=== PATIENT | male | born 1955 | race Caucasian/White ===

== ENCOUNTER → 2016-07-25 | Day surgery (SDC) | payer OTHER ==
[~2016-07-25] VITALS: Ht 167.6 cm; Wt 70.3 kg
[~2016-07-25] MED LIST: ASPIRIN81 MG PO; CLINDAMYCIN HC300 MG PO; COLACE100 MG PO; COUMADIN3 M1 PO; COUMADIN7.5 M1 PO; FERROUS SULFAT325 MG PO; FOLIC ACID0.4 MG PO; FOLIC ACID1 MG PO; K-Dur 20MEQ20 MEQ PO; LASIX40 MG PO; LISINOPRIL5 MG PO; MAG-OX 400400 MG PO; MAGNESIUM OXID400 MG PO; METOPROLOL25 MG PO; MULTIVITAMIN1 TA1 PO; NAPROSYN500 MG PO; PENICILLIN-VK500 M1 PO; PERCOCET 325 MG1 TA5 PO; POTASSIUM CHLO20 ME4 PO; PRAVASTATIN SOD20 MG PO; PROTONIX40 MG PO; TUMS500 MG PO; VITAMIN B1100 MG PO; VITAMIN B150 MG PO
--- NOTE | ~2016-07-25 | O ---
[place], [place] OPERATIVE NOTE NAME: COREDLL CASILLAS UNIT #: [id number] ROOM: DOCTOR: RAKESH HOPSON DMD BIRTHDATE: [birth year] DOS: PREOPERATIVE DIAGNOSES: Carries and periodontal disease and anxiety. POSTOPERATIVE DIAGNOSES: Carries and periodontal disease and anxiety. ANESTHESIA: General anesthesia with endotracheal intubation. FLUIDS: Minimal. ESTIMATED BLOOD LOSS: Minimal. COMPLICATIONS: None. CONDITION: To PACU, stable. DESCRIPTION OF PROCEDURE: The patient was brought to the OR and placed in supine position. IV and EKG lines were placed. Endotracheal intubation and general anesthesia was administered. The patient was prepped and draped for oral procedures. Risks and benefits were explained to the patient prior to surgery. Clinical exam and x-rays taken determined nonrestorable maxillary and mandibular dentition. PROCEDURES PERFORMED: Complete extraction of teeth #4, 5, 6, 7, 8, 9, 11, 12, 13, 15, 16, 17, 20, 21, 22, 23 26, 27, 28, 29 and 31. Full-thickness flaps in all 4 quadrants with moderate alveoplasty, teeth #5 and 12 fractured with complete retrieval. Sutured with 4-0 Vicryl. Lavaged x 2. Throat pack removed. The patient left the OR in good condition and went to the PACU. RAKESH HOPSON DMD CM:OPRECORD:OPERATIVE NOTE 1300 48 RAKESH HOPSON DMD 07/26/16 174 interface
[2016-07-25 06:45] VITALS: BP 111/58
[2016-07-25 08:50] VITALS: BP 117/58
[2016-07-25 09:05] VITALS: BP 121/61
[2016-07-25 09:19] VITALS: BP 125/66
[2016-07-25 09:30] VITALS: BP 125/70
[2016-07-25 09:50] VITALS: BP 109/66
== END | disposition home or self-care (01) ==
LOC: SDC 07-18 11:30
DX: K02.9 Dental caries, unspecified (principal); K05.6 Periodontal disease, unspecified; F41.9 Anxiety disorder, unspecified; Z87.891 Personal history of nicotine dependence; I10 Essential (primary) hypertension; I25.2 Old myocardial infarction; E78.00 Pure hypercholesterolemia, unspecified; I25.10 Atherosclerotic heart disease of native coronary artery without angina pectoris; I73.9 Peripheral vascular disease, unspecified; Z86.73 Personal history of transient ischemic attack (TIA), and cerebral infarction without residual deficits; Z95.810 Presence of automatic (implantable) cardiac defibrillator; Z98.890 Other specified postprocedural states

== ENCOUNTER 2016-08-14 12:44 | Inpatient (IN) | payer OTHER ==
[~2016-08-14] VITALS: Ht 154.9 cm; Wt 57.7 kg
--- NOTE | ~2016-08-14 | PR ---
[place], [place] PROGRESS NOTE NAME: CORDELL CASILLAS [facility] #: [id number] UNIT #: [id number] ROOM: 507 DOCTOR: ALEIDA ROCHA [facility],KAMLA BIRTHDATE: [birth year] DOS: 08/17/2016 SUBJECTIVE: ____. PHYSICAL EXAMINATION: VITAL SIGNS: Stable. No fever is noted. SKIN: Warm, not diaphoretic. NECK: Supple. LUNGS: No rales heard. HEART: S1, S2, regular. No gallop. ABDOMEN: Soft. Echocardiogram shows ____ normal. No critical illness is noted. IMPRESSION: Cardiovascular status improving. Hemodynamically stable. We will continue the current therapy and monitor cardiovascular status. I will follow the patient as an outpatient in the office. KAMLA SHIN MD CM:PNTRANS [id number] KAMLA SHIN MD [facility] 08/18/16 0002 interface
--- NOTE | ~2016-08-14 | CON ---
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 They have asked him to avoid that. He is not a smoker and no significant alcohol intake. DATA BASIS: A 61-year-old male presented to the emergency room of [facility] with syncopal episode at home and has recurrent dizziness ____ when become orthostatic, and the patient also apparently can be referred as a right side chest pain, jaw pain, and he had teeth pulled out but still is getting it time to time with similar symptoms. History of myocardial infarction, coronary bypass surgery 5 years ago and had a defibrillator internal put in and no consequence from that and denies any chest discomfort or palpitations. No focal neurological symptoms or signs were noted. His vital signs have been stable heart rhythm and blood pressure and afebrile. REVIEW OF SYSTEMS: HEENT: Unremarkable. CARDIOPULMONARY: As described. GASTROINTESTINAL: Unremarkable. GENITOURINARY: Unremarkable. NEUROLOGIC: No asterixis and no stroke except for syncope. FAMILY HISTORY: Noncontributory. ALLERGIES: No known allergies. PHYSICAL EXAMINATION: LUNGS: No rales heard. HEART: S1, S2, regular, no gallops. SKIN: Warm and not diaphoretic. No cyanosis. RECTAL AND GENITALIA: Deferred. NEUROLOGIC: No focal neurological deficits noted. EXTREMITIES: Pulses are good. No edema was noted. DIAGNOSTIC STUDIES: Chest x-ray done on , and cardiac size is normal. No pneumonic infiltration, no pleural effusion noted, no pneumothorax noted. No acute process. CT of the head done with contrast. Apparent old infarct in the left frontal may be considered, no acute process noted. Myoglobins were minimally elevated; and magnesium was 2.2, little bit high. GFR is diminished to an extent, 39, and creatinine is 2.1, chronic kidney disease. Potassium is low and is being corrected, was 2.9, and now it is 3.3; it has continued to improve. Hemoglobin 11.5. The patient on vitamin D supplements, lisinopril 10 mg with combination of hydrochlorothiazide 12.5. We may discontinue the hydrochlorothiazide and cut back on the lisinopril 5 mg, so that may reduce the [place], [place] REPORT OF CONSULTATION NAME: CORDELL CASILLAS UNIT #: [id number] ROOM: 50 DOCTOR: ALEIDA ROCHA [facility] BIRTHDATE: [birth year] orthostatic symptoms, and we will have him take it at bedtime to reduce the orthostatic symptoms. The patient also on baby aspirin daily. Continue the fenofibrate, iron supplements, thiamine, and simvastatin. He is on furosemide twice a day that also we will cut back into once a day and the patient is on potassium supplements, we will continue that. 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 We will continue the current drugs. May avoid the stimulants and may also use the elastic stockings when he is ambulatory. Thank you very much for asking me to see the patient and follow the patient. KAMLA SHIN MD CM:CONSTR:REPORT OF CONSULTATION 0736 08/15/16 2232 interface
[2016-08-14 12:47] VITALS: BP 119/79
[2016-08-14 13:10] LABS: BASO % 0.4 % (0.0-1.0); EOS # 0.1 10*3/uL (0.0-0.4); EOS % 0.7 % (1.0-4.0); HEMATOCRIT 39.1 % (42.0-52.0); HEMOGLOBIN 13.5 g/dl (14.0-18.0); LYMPH # 1.2 10*3/uL (1.3-4.4); MEAN CELL VOLUME 81.3 fl (80.0-94.0); MEAN CORPUSCULAR HGB 28.1 pg (27.0-31.0); MEAN CORPUSCULAR HGB CONC 34.5 g/dl (33.0-37.0); MEAN PLATELET VOLUME 10.2 fl (9.6-12.3); MONO # 0.7 10*3/uL (0.1-1.0); NEUT # 5.1 10*3/uL (2.3-7.9); NEUT % 71.6 % (47.0-73.0); PLATELET COUNT AUTOMATED 269 10*3/uL (130-400); RED BLOOD COUNT 4.81 10*6/uL (4.50-5.90); RED CELL DISTRI WIDTH 12.8 % (0-14.5); WHITE BLOOD COUNT 7.1 10*3/uL (4.8-10.8)
[2016-08-14 13:26] LABS: ALBUMIN 4.5 gm/dl (3.1-4.5); BILIRUBIN, TOTAL 0.9 mg/dl (0.2-1.0); C-REACTIVE PROTEIN 0.35 MG/DL (0-0.3); CKMB 1.1 ng/ml (0.5-3.6); MAGNESIUM 2.2 mg/dL (1.5-2.1); POTASSIUM 2.9 mmol/L (3.5-5.1); TOTAL PROTEIN 8.2 gm/dL (6.4-8.2); TROPONIN I 0.017 ng/ml (<0.045)
[2016-08-14 13:28] LABS: PROTHROMBIN TIME 11.1 SECONDS (9.0-12.4)
[2016-08-14 13:39] VITALS: BP 111/61
[2016-08-14 14:55] VITALS: BP 116/67
[2016-08-14 16:00] VITALS: BP 127/78; BP 144/76
[2016-08-14] MEDS ORDERED: LISINOPRIL10 M1 PO (17:02)
[2016-08-14] MEDS ORDERED: HYDR25T PO (17:03)
[2016-08-14] MEDS ORDERED: PERCOCET 325 MG1 TA5 PO (17:05)
[2016-08-14] MEDS ORDERED: VITAMIN D50000 UNIT PO (17:06)
[2016-08-14] MEDS ORDERED: OYSTER SHELL CA1 T17 PO (17:07)
[2016-08-14] MEDS ORDERED: FENOFIBRATE160 MG PO (17:07)
[2016-08-14] MEDS ORDERED: LYRICA100 M1 PO (17:08)
[2016-08-14 18:41] LABS: CKMB 0.8 ng/ml (0.5-3.6)
[2016-08-14 20:00] VITALS: BP 118/52
[2016-08-15] VITALS: BP 108/54
[2016-08-15 00:56] LABS: CKMB 0.6 ng/ml (0.5-3.6)
[2016-08-15 06:18] LABS: BASO % 0.8 % (0.0-1.0); EOS # 0.1 10*3/uL (0.0-0.4); EOS % 2.7 % (1.0-4.0); HEMATOCRIT 33.9 % (42.0-52.0); HEMOGLOBIN 11.5 g/dl (14.0-18.0); LYMPH # 1.7 10*3/uL (1.3-4.4); LYMPH % 35.2 % (27.0-41.0); MEAN CELL VOLUME 83.9 fl (80.0-94.0); MEAN CORPUSCULAR HGB 28.5 pg (27.0-31.0); MEAN CORPUSCULAR HGB CONC 33.9 g/dl (33.0-37.0); MEAN PLATELET VOLUME 10.1 fl (9.6-12.3); MONO # 0.7 10*3/uL (0.1-1.0); MONO % 13.5 % (3.0-9.0); NEUT # 2.3 10*3/uL (2.3-7.9); NEUT % 47.6 % (47.0-73.0); PLATELET COUNT AUTOMATED 194 10*3/uL (130-400); RED BLOOD COUNT 4.04 10*6/uL (4.50-5.90); RED CELL DISTRI WIDTH 12.9 % (0-14.5); WHITE BLOOD COUNT 4.8 10*3/uL (4.8-10.8)
[2016-08-15 06:23] LABS: CKMB 0.8 ng/ml (0.5-3.6)
[2016-08-15 06:24] LABS: HEMOGLOBIN A1c 5.9 % (4.8-5.6)
[2016-08-15 06:46] LABS: ALBUMIN 3.6 gm/dl (3.1-4.5); MAGNESIUM 2.3 mg/dL (1.5-2.1); POTASSIUM 3.3 mmol/L (3.5-5.1)
[2016-08-15 06:55] LABS: BILIRUBIN, TOTAL 0.6 mg/dl (0.2-1.0); PHOSPHOROUS 2.6 mg/dL (2.5-4.9); THYROID STIM HORMONE (HS) 0.536 uIU/ml (0.358-4.75); TOTAL PROTEIN 6.9 gm/dL (6.4-8.2)
[2016-08-15 07:04] LABS: VITAMIN D, 25-HYDROXY 63.6 ng/mL (30-100)
[2016-08-15 07:05] LABS: FOLIC ACID > 24.00 ng/mL (>5.38)
[2016-08-15 08:00] VITALS: BP 126/60
[2016-08-15 12:00] VITALS: BP 117/63
[2016-08-15 16:00] VITALS: BP 126/61
[2016-08-15 20:00] VITALS: BP 121/69
[2016-08-16] VITALS: BP 116/74
[2016-08-16 06:55] LABS: BASO % 0.4 % (0.0-1.0); EOS # 0.1 10*3/uL (0.0-0.4); EOS % 2.1 % (1.0-4.0); HEMATOCRIT 32.2 % (42.0-52.0); HEMOGLOBIN 10.7 g/dl (14.0-18.0); LYMPH # 1.4 10*3/uL (1.3-4.4); LYMPH % 25.6 % (27.0-41.0); MEAN CELL VOLUME 84.3 fl (80.0-94.0); MEAN CORPUSCULAR HGB CONC 33.2 g/dl (33.0-37.0); MEAN PLATELET VOLUME 10.5 fl (9.6-12.3); MONO # 0.6 10*3/uL (0.1-1.0); MONO % 11.4 % (3.0-9.0); NEUT # 3.3 10*3/uL (2.3-7.9); NEUT % 60.5 % (47.0-73.0); PLATELET COUNT AUTOMATED 176 10*3/uL (130-400); RED BLOOD COUNT 3.82 10*6/uL (4.50-5.90); WHITE BLOOD COUNT 5.4 10*3/uL (4.8-10.8)
[2016-08-16 07:30] LABS: BUN 21 mg/dl (7-24); CARBON DIOXIDE 27 mmol/L (21-32); CHLORIDE 107 mmol/L (98-107); EST GLOM FILT AFRICAN AMERICAN > 60 ml/min; GLUCOSE 99 mg/dL (65-99); POTASSIUM 3.5 mmol/L (3.5-5.1); SODIUM 144 mmol/L (136-145)
[2016-08-16 08:00] VITALS: BP 103/63
[2016-08-16 12:00] VITALS: BP 133/67
[2016-08-16 16:00] VITALS: BP 105/60
[2016-08-16 20:00] VITALS: BP 129/75
[2016-08-17] VITALS: BP 96/59
[2016-08-17 06:46] LABS: BASO % 0.4 % (0.0-1.0); EOS # 0.1 10*3/uL (0.0-0.4); EOS % 2.1 % (1.0-4.0); HEMATOCRIT 33.2 % (42.0-52.0); LYMPH # 1.6 10*3/uL (1.3-4.4); LYMPH % 33.5 % (27.0-41.0); MEAN CELL VOLUME 84.9 fl (80.0-94.0); MEAN CORPUSCULAR HGB 28.1 pg (27.0-31.0); MEAN CORPUSCULAR HGB CONC 33.1 g/dl (33.0-37.0); MEAN PLATELET VOLUME 10.7 fl (9.6-12.3); MONO # 0.6 10*3/uL (0.1-1.0); MONO % 11.4 % (3.0-9.0); NEUT # 2.5 10*3/uL (2.3-7.9); NEUT % 52.4 % (47.0-73.0); PLATELET COUNT AUTOMATED 212 10*3/uL (130-400); RED BLOOD COUNT 3.91 10*6/uL (4.50-5.90); RED CELL DISTRI WIDTH 13.2 % (0-14.5); WHITE BLOOD COUNT 4.8 10*3/uL (4.8-10.8)
[2016-08-17 07:11] LABS: BUN 14 mg/dl (7-24); CARBON DIOXIDE 28 mmol/L (21-32); CHLORIDE 108 mmol/L (98-107); EST GLOM FILT AFRICAN AMERICAN > 60 ml/min; GLUCOSE 78 mg/dL (65-99); POTASSIUM 3.8 mmol/L (3.5-5.1); SODIUM 143 mmol/L (136-145)
[2016-08-17 08:00] VITALS: BP 106/54
[2016-08-17] MEDS ORDERED: CLINDAMYCIN HC300 MG PO (10:31)
== END 2016-08-17 11:42 | disposition home or self-care (01) | DRG 682 ==
LOC: ED 12:44 → EDHOLD 14:34 → 5E 14:34
PROVIDERS: Emergency Medicine; Hospitalist
DX: I12.9 Hypertensive chronic kidney disease with stage 1 through stage 4 chronic kidney disease, or unspecified chronic kidney disease (principal); N17.0 Acute kidney failure with tubular necrosis; E83.41 Hypermagnesemia; R55 Syncope and collapse; E87.6 Hypokalemia; E86.0 Dehydration; D64.9 Anemia, unspecified; E04.1 Nontoxic single thyroid nodule; W18.30XA Fall on same level, unspecified, initial encounter; K11.5 Sialolithiasis; K08.409 Partial loss of teeth, unspecified cause, unspecified class; Y93.89 Activity, other specified; Y99.8 Other external cause status; Z89.419 Acquired absence of unspecified great toe; Z95.810 Presence of automatic (implantable) cardiac defibrillator; I25.2 Old myocardial infarction; Z95.1 Presence of aortocoronary bypass graft; Z87.891 Personal history of nicotine dependence; Z82.49 Family history of ischemic heart disease and other diseases of the circulatory system; Z79.82 Long term (current) use of aspirin; Z79.899 Other long term (current) drug therapy; Z89.422 Acquired absence of other left toe(s); Z89.421 Acquired absence of other right toe(s); Y92.009 Unspecified place in unspecified non-institutional (private) residence as the place of occurrence of the external cause; N18.9 Chronic kidney disease, unspecified

== ENCOUNTER 2017-03-01 15:26 | Inpatient (IN) | payer OTHER ==
[2017-03-01] VITALS (7 sets, daily range): BP systolic 100–126; BP diastolic 51–63
[~2017-03-01] VITALS: Ht 168 cm; Wt 68.0 kg
--- NOTE | ~2017-03-01 | CON ---
[place], [place] REPORT OF CONSULTATION NAME: CORDELL CASILLAS UNIT #: [id number] ROOM: [facility] DOCTOR: KAMLA SHIN MD, FACC BIRTHDATE: 55 DOS: 03/02/2017 HISTORY OF PRESENT ILLNESS: The patient came to the Emergency Room with several, almost 6 defibrillator shocks and the patient got to the unit and started on ____. The patient has history of coronary artery disease, coronary artery bypass surgery, history of congestive heart failure, TIA, dyslipidemia, and also had aortic dissection in the past, systolic ejection markedly depressed 15%-20%. The patient has ICD for ischemic cardiomyopathy and came to the Emergency Room through the ambulance. Chest x-ray final exam unremarkable. Personal history of myocardial infarction. The patient with three-vessel bypass. The patient is a former smoker, quit quite a while ago. History of brain aneurysm. History of myocardial infarction at the age of 60. List of medications were included in the computer. The defibrillator was reviewed. The patient had replacement of fractured lead that was causing the signal disturbance and delivering the shock. PHYSICAL EXAMINATION: GENERAL: Alert, responding well. Mental status is good. VITAL SIGNS: Stable. Blood pressure 146/63, pulse of 70, respiratory rate 17, afebrile. Pulse ox is 94%. LUNGS: Diminished breath sounds at bases. HEART: S1, S2, regular. ABDOMEN: Soft. The patient had abdominal aortic aneurysm in the past. SKIN: Warm. Color is good. Not diaphoretic. 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 LABORATORY DATA: GFR is normal. Creatinine is 1.4 and BUN is 21 and electrolytes are normal. Magnesium levels are also normal. DIAGNOSES: Right ventricle defibrillator lead fracture causing the defibrillator going off several times. PLAN: Attempt to remove the previous lead if we can't put a new right ventricle lead and optimize the defibrillator status and options, procedures, complications, morbidity, and mortality risks were explained. The patient ____ to do this procedure as soon as possible. [place], [place] REPORT OF CONSULTATION NAME: CORDELL CASILLAS UNIT #: [id number] ROOM: [facility] DOCTOR: KAMLA SHIN MD, FACC BIRTHDATE: [birth year] KAMLA SHIN MD CM:CONSTR:REPORT OF CONSULTATION 1620 03/03/17 0047 interface ESTEVAN PEREZ DO and FELIPE RIVERA DO
[~2017-03-01 15:26] MED LIST changes: +FENOFIBRATE160 MG PO; +HYDR25T PO; +LISINOPRIL10 M1 PO; +LYRICA100 M1 PO; +OYSTER SHELL CA1 T17 PO; +VITAMIN D50000 UNIT PO
[2017-03-01] MEDS ORDERED: BACITRACIN-NEO0.9 GM T (15:55)
[2017-03-01 16:00] LABS: BASO % 0.5 % (0.0-1.0); EOS # 0.2 10*3/uL (0.0-0.4); EOS % 2.2 % (1.0-4.0); HEMATOCRIT 36.8 % (42.0-52.0); HEMOGLOBIN 12.4 g/dl (14.0-18.0); LYMPH # 1.6 10*3/uL (1.3-4.4); LYMPH % 18.2 % (27.0-41.0); MEAN CELL VOLUME 85.2 fl (80.0-94.0); MEAN CORPUSCULAR HGB 28.7 pg (27.0-31.0); MEAN CORPUSCULAR HGB CONC 33.7 g/dl (33.0-37.0); MEAN PLATELET VOLUME 9.1 fl (9.6-12.3); MONO % 11.9 % (3.0-9.0); NEUT # 5.9 10*3/uL (2.3-7.9); NEUT % 66.9 % (47.0-73.0); PLATELET COUNT AUTOMATED 222 10*3/uL (130-400); RED BLOOD COUNT 4.32 10*6/uL (4.50-5.90); WHITE BLOOD COUNT 8.8 10*3/uL (4.8-10.8)
[2017-03-01 16:08] LABS: ACT PARTIAL THROMBO TIME 23.1 SECONDS (20.8-31.5)
[2017-03-01 16:17] LABS: ALBUMIN 4.1 gm/dl (3.1-4.5); ALKALINE PHOSPHATASE 46 U/L (45-117); BUN 21 mg/dl (7-24); CHLORIDE 100 mmol/L (98-107); CREATININE 1.43 mg/dL (0.70-1.30); SGOT/AST 17 IU/L (3-35); SGPT/ALT 19 U/L (12-78); SODIUM 141 mmol/L (136-145); TOTAL PROTEIN 7.8 gm/dL (6.4-8.2)
[2017-03-01 16:21] LABS: TROPONIN I < 0.015 ng/ml (<0.045)
[2017-03-02] VITALS: BP 108/47
[2017-03-02 04:00] VITALS: BP 125/64
[2017-03-02 04:34] LABS: BASO % 0.7 % (0.0-1.0); EOS # 0.2 10*3/uL (0.0-0.4); EOS % 3.7 % (1.0-4.0); HEMOGLOBIN 11.7 g/dl (14.0-18.0); LYMPH # 1.7 10*3/uL (1.3-4.4); MEAN CELL VOLUME 85.2 fl (80.0-94.0); MEAN CORPUSCULAR HGB 28.5 pg (27.0-31.0); MEAN CORPUSCULAR HGB CONC 33.4 g/dl (33.0-37.0); MONO # 0.8 10*3/uL (0.1-1.0); MONO % 13.9 % (3.0-9.0); NEUT # 3.1 10*3/uL (2.3-7.9); NEUT % 52.4 % (47.0-73.0); PLATELET COUNT AUTOMATED 199 10*3/uL (130-400); RED BLOOD COUNT 4.11 10*6/uL (4.50-5.90); RED CELL DISTRI WIDTH 13.2 % (0-14.5)
[2017-03-02 04:52] LABS: ALBUMIN 3.5 gm/dl (3.1-4.5); ALKALINE PHOSPHATASE 33 U/L (45-117); BUN 20 mg/dl (7-24); CHLORIDE 102 mmol/L (98-107); CHOLESTEROL 128 mg/dL (<200); CREATININE 1.33 mg/dL (0.70-1.30); FREE T4 1.08 ng/dl (0.76-1.46); HDL CHOLESTEROL 52 mg/dl (40-60); LDL CHOLESTEROL 51 mg/dL (9-159); POTASSIUM 3.6 mmol/L (3.5-5.1); SGOT/AST 16 IU/L (3-35); SGPT/ALT 16 U/L (12-78); SODIUM 142 mmol/L (136-145); TOTAL PROTEIN 6.9 gm/dL (6.4-8.2); TRIGLYCERIDES 126 mg/dl (<150); VLDL CHOLESTEROL 25 mg/dL (6-40)
[2017-03-02 07:09] LABS: VITAMIN D, 25-HYDROXY 88.3 ng/mL (30-100)
[2017-03-02 08:00] VITALS: BP 107/62
[2017-03-02] MEDS ORDERED: GABAPENTIN400 MG PO (08:51)
[2017-03-02] MEDS ORDERED: KLOR-CON M1010 ME1 PO (08:59)
[2017-03-02] MEDS ORDERED: CENTRUM ADULTS1 EACH PO (09:02)
[2017-03-02] MEDS ORDERED: COLACE100 MG PO (09:05)
[2017-03-02] MEDS ORDERED: MAGNESIUM200 MG PO (09:06)
[2017-03-02] MEDS ORDERED: NEURONTIN800 MG PO (10:48)
[2017-03-02] MEDS ORDERED: PAIN RELIEF EX500 MG PO (10:51)
[2017-03-02 12:00] VITALS: BP 118/67
[2017-03-02 16:00] VITALS: BP 102/61
[2017-03-02] MEDS ORDERED: LORAZEPAM0.5 MG PO (16:20)
[2017-03-02] MEDS ORDERED: PACERONE200 MG PO ×3 (16:20)
[2017-03-02] MEDS ORDERED: LOPRESSOR25 MG PO (16:20)
[2017-03-02 20:00] VITALS: BP 93/52
== END 2017-03-02 22:47 | disposition short-term general hospital (02) | DRG 309 ==
LOC: ED 15:26 → EDHOLD 16:56 → ICCU 16:56
PROVIDERS: Internal Medicine; Physician Assistant
PROC: 4B02XTZ Measurement of Cardiac Defibrillator, External Approach (ICD-10-PCS; principal; 2017-03-02)
DX: T82.190A Other mechanical complication of cardiac electrode, initial encounter (principal); I25.810 Atherosclerosis of coronary artery bypass graft(s) without angina pectoris; N18.3 Chronic kidney disease, stage 3 (moderate); E83.41 Hypermagnesemia; I13.0 Hypertensive heart and chronic kidney disease with heart failure and stage 1 through stage 4 chronic kidney disease, or unspecified chronic kidney disease; I50.9 Heart failure, unspecified; E78.5 Hyperlipidemia, unspecified; D64.9 Anemia, unspecified; D72.810 Lymphocytopenia; D72.821 Monocytosis (symptomatic); R73.9 Hyperglycemia, unspecified; I71.4 Abdominal aortic aneurysm, without rupture; Y83.1 Surgical operation with implant of artificial internal device as the cause of abnormal reaction of the patient, or of later complication, without mention of misadventure at the time of the procedure; Y92.89 Other specified places as the place of occurrence of the external cause; I25.2 Old myocardial infarction; Z95.1 Presence of aortocoronary bypass graft; Z87.891 Personal history of nicotine dependence; Z82.49 Family history of ischemic heart disease and other diseases of the circulatory system; Z89.422 Acquired absence of other left toe(s); Z89.421 Acquired absence of other right toe(s); Z79.899 Other long term (current) drug therapy; Z82.0 Family history of epilepsy and other diseases of the nervous system; Z79.82 Long term (current) use of aspirin; Z86.73 Personal history of transient ischemic attack (TIA), and cerebral infarction without residual deficits

== ENCOUNTER 2017-05-30 18:35 | Emergency (ER) | payer OTHER ==
[~2017-05-30] VITALS: Ht 167.6 cm; Wt 70.3 kg
[~2017-05-30 18:35] MED LIST changes: +BACITRACIN-NEO0.9 GM T; +CENTRUM ADULTS1 EACH PO; +GABAPENTIN400 MG PO; +KLOR-CON M1010 ME1 PO; +LOPRESSOR25 MG PO; +LORAZEPAM0.5 MG PO; +MAGNESIUM200 MG PO; +NEURONTIN800 MG PO; +PACERONE200 MG PO; +PAIN RELIEF EX500 MG PO
== END 2017-05-30 19:45 | disposition home or self-care (01) ==
LOC: ED 18:35
DX: G54.6 Phantom limb syndrome with pain (principal); Z98.890 Other specified postprocedural states; Z87.891 Personal history of nicotine dependence; Z79.82 Long term (current) use of aspirin; Z79.899 Other long term (current) drug therapy

== ENCOUNTER 2017-08-12 12:49 | Inpatient (IN) | payer OTHER ==
[~2017-08-12] VITALS: Ht 167.6 cm; Wt 70.0 kg
[~2017-08-12 12:49] MED LIST changes: +LASIX20 MG PO; -LASIX40 MG PO; -LISINOPRIL10 M1 PO; +LISINOPRIL2.5 MG PO
[2017-08-12 12:51] VITALS: BP 172/120
[2017-08-12 13:05] VITALS: BP 106/52
[2017-08-12 13:45] LABS: BASO # 0.1 10*3/uL (0.0-0.1); BASO % 0.5 % (0.0-1.0); EOS # 0.2 10*3/uL (0.0-0.4); HEMATOCRIT 44.9 % (42.0-52.0); LYMPH # 1.9 10*3/uL (1.3-4.4); LYMPH % 16.1 % (27.0-41.0); MEAN CELL VOLUME 87.5 fl (80.0-94.0); MEAN CORPUSCULAR HGB 29.2 pg (27.0-31.0); MEAN CORPUSCULAR HGB CONC 33.4 g/dl (33.0-37.0); MEAN PLATELET VOLUME 9.3 fl (9.6-12.3); MONO # 1.1 10*3/uL (0.1-1.0); MONO % 9.6 % (3.0-9.0); NEUT # 8.4 10*3/uL (2.3-7.9); NEUT % 71.5 % (47.0-73.0); PLATELET COUNT AUTOMATED 322 10*3/uL (130-400); RED BLOOD COUNT 5.13 10*6/uL (4.50-5.90); RED CELL DISTRI WIDTH 13.5 % (0-14.5); WHITE BLOOD COUNT 11.7 10*3/uL (4.8-10.8)
[2017-08-12 14:00] LABS: ALBUMIN 4.1 gm/dl (3.1-4.5); CREATININE 3.07 mg/dL (0.70-1.30); POTASSIUM 3.4 mmol/L (3.5-5.1); TOTAL PROTEIN 7.6 gm/dL (6.4-8.2)
[2017-08-12 15:14] LABS: BILIRUBIN NEGATIVE (NEGATIVE); BLOOD NEGATIVE (NEGATIVE); CLARITY CLEAR (CLEAR); COLOR YELLOW (YELLOW); GLUCOSE NEGATIVE (NEGATIVE); KETONE NEGATIVE (NEGATIVE); LEUKO ESTERASE NEGATIVE (NEGATIVE); NITRITE NEGATIVE (NEGATIVE); PH 5.5 (5.0-9.0); UROBILINOGEN 0.2 E.U./dl (0.2-1.0)
[2017-08-12 15:20] VITALS: BP 104/58
[2017-08-12 15:22] LABS: HYALINE CAST TNTC
[2017-08-12 16:00] VITALS: BP 95/56
[2017-08-13] VITALS: BP 98/50
[2017-08-13 06:21] LABS: BASO % 0.5 % (0.0-1.0); EOS # 0.2 10*3/uL (0.0-0.4); LYMPH # 2.1 10*3/uL (1.3-4.4); LYMPH % 32.3 % (27.0-41.0); MEAN CELL VOLUME 87.6 fl (80.0-94.0); MEAN CORPUSCULAR HGB 29.5 pg (27.0-31.0); MEAN CORPUSCULAR HGB CONC 33.7 g/dl (33.0-37.0); MEAN PLATELET VOLUME 9.4 fl (9.6-12.3); MONO # 0.7 10*3/uL (0.1-1.0); NEUT # 3.4 10*3/uL (2.3-7.9); NEUT % 52.7 % (47.0-73.0); RED BLOOD COUNT 3.96 10*6/uL (4.50-5.90); RED CELL DISTRI WIDTH 13.5 % (0-14.5); WHITE BLOOD COUNT 6.4 10*3/uL (4.8-10.8)
[2017-08-13 06:22] LABS: HEMATOCRIT 34.7 % (42.0-52.0); HEMOGLOBIN 11.7 g/dl (14.0-18.0); PLATELET COUNT AUTOMATED 216 10*3/uL (130-400)
[2017-08-13 06:43] LABS: ACT PARTIAL THROMBO TIME 22.7 SECONDS (20.8-31.5)
[2017-08-13 06:45] LABS: ALBUMIN 3.7 gm/dl (3.1-4.5); CREATININE 1.81 mg/dL (0.70-1.30); FREE T4 1.18 ng/dl (0.76-1.46); PHOSPHOROUS 3.2 mg/dL (2.5-4.9); POTASSIUM 3.5 mmol/L (3.5-5.1); TOTAL PROTEIN 6.6 gm/dL (6.4-8.2)
[2017-08-13 06:50] LABS: THYROID STIM HORMONE (HS) 0.87 uIU/ml (0.358-4.75)
[2017-08-13 07:37] LABS: VITAMIN D, 25-HYDROXY 42.6 ng/mL (30-100)
[2017-08-13 08:00] VITALS: BP 107/63
[2017-08-13 12:00] VITALS: BP 102/53
[2017-08-13 16:00] VITALS: BP 108/51
[2017-08-13] MEDS ORDERED: Lopressor25 MG PO (16:20)
[2017-08-13] MEDS ORDERED: MAGNESIUM OXID250 M2 PO (16:22)
[2017-08-13 20:00] VITALS: BP 128/66
[2017-08-14] VITALS: BP 107/60
[2017-08-14 06:39] LABS: BASO % 0.4 % (0.0-1.0); EOS # 0.1 10*3/uL (0.0-0.4); EOS % 2.3 % (1.0-4.0); HEMATOCRIT 33.2 % (42.0-52.0); HEMOGLOBIN 10.9 g/dl (14.0-18.0); LYMPH # 1.4 10*3/uL (1.3-4.4); MEAN CELL VOLUME 88.8 fl (80.0-94.0); MEAN CORPUSCULAR HGB 29.1 pg (27.0-31.0); MEAN CORPUSCULAR HGB CONC 32.8 g/dl (33.0-37.0); MEAN PLATELET VOLUME 9.5 fl (9.6-12.3); MONO # 0.7 10*3/uL (0.1-1.0); MONO % 11.5 % (3.0-9.0); NEUT # 3.4 10*3/uL (2.3-7.9); NEUT % 60.6 % (47.0-73.0); PLATELET COUNT AUTOMATED 188 10*3/uL (130-400); RED BLOOD COUNT 3.74 10*6/uL (4.50-5.90); RED CELL DISTRI WIDTH 13.4 % (0-14.5); WHITE BLOOD COUNT 5.6 10*3/uL (4.8-10.8)
[2017-08-14 07:07] LABS: ALBUMIN 3.5 gm/dl (3.1-4.5); ALKALINE PHOSPHATASE 29 U/L (45-117); CHLORIDE 109 mmol/L (98-107); CREATININE 1.25 mg/dL (0.70-1.30); POTASSIUM 3.5 mmol/L (3.5-5.1); SGOT/AST 12 IU/L (3-35); SGPT/ALT 18 U/L (12-78); SODIUM 143 mmol/L (136-145); TOTAL PROTEIN 6.5 gm/dL (6.4-8.2)
[2017-08-14 07:08] LABS: BUN 16 mg/dl (7-24)
[2017-08-14 08:00] VITALS: BP 127/83
[2017-08-14] MEDS ORDERED: Cleocin150 MG PO (13:04)
== END 2017-08-14 14:04 | disposition home or self-care (01) | DRG 684 ==
LOC: ED 12:49 → EDHOLD 14:46 → 5E 14:46
PROVIDERS: Emergency Medicine; Family Medicine; Internal Medicine Hospice and Palliative Medicine
DX: N17.0 Acute kidney failure with tubular necrosis (principal); D72.829 Elevated white blood cell count, unspecified; I25.10 Atherosclerotic heart disease of native coronary artery without angina pectoris; H66.92 Otitis media, unspecified, left ear; R73.9 Hyperglycemia, unspecified; N18.9 Chronic kidney disease, unspecified; I12.9 Hypertensive chronic kidney disease with stage 1 through stage 4 chronic kidney disease, or unspecified chronic kidney disease; I25.2 Old myocardial infarction; Z95.810 Presence of automatic (implantable) cardiac defibrillator; Z87.891 Personal history of nicotine dependence; Z95.1 Presence of aortocoronary bypass graft; Z89.422 Acquired absence of other left toe(s); Z89.421 Acquired absence of other right toe(s); Z86.73 Personal history of transient ischemic attack (TIA), and cerebral infarction without residual deficits; Z82.49 Family history of ischemic heart disease and other diseases of the circulatory system; Z79.899 Other long term (current) drug therapy; Z79.82 Long term (current) use of aspirin

== ENCOUNTER → 2018-03-15 | Outpatient (CLI) | payer OTHER ==
[~2018-03-15] MED LIST changes: +Cleocin150 MG PO; +GABAPENTIN600 MG PO; +GNP FISH OIL 11 EAC1 PO; +LISINOPRIL20 MG PO; +Lopressor25 MG PO; +MAGNESIUM OXID250 M2 PO; +ZESTORETIC 10-1 EACH PO
[2018-03-15 10:59] LABS: HEMATOCRIT 39.7 % (42.0-52.0); MEAN CELL VOLUME 86.7 fl (80.0-94.0); MEAN CORPUSCULAR HGB 28.4 pg (27.0-31.0); MEAN CORPUSCULAR HGB CONC 32.7 g/dl (33.0-37.0); MEAN PLATELET VOLUME 9.8 fl (9.6-12.3); PLATELET COUNT AUTOMATED 257 10*3/uL (130-400); RED BLOOD COUNT 4.58 10*6/uL (4.50-5.90); RED CELL DISTRI WIDTH 13.2 % (0-14.5); WHITE BLOOD COUNT 5.8 10*3/uL (4.8-10.8)
[2018-03-15 11:37] LABS: PLATELET SUFFICIENCY NORMAL (NORMAL); TOTAL CELLS COUNTED 100 #CELLS
[2018-03-27 13:10] LABS: GTG BAND RESOLUTION ACHIEVED 400 (.)
== END | disposition home or self-care (01) ==
LOC: RESCLI 04:39
PROVIDERS: Internal Medicine
DX: D64.89 Other specified anemias (principal); Z79.899 Other long term (current) drug therapy

== ENCOUNTER → 2018-03-29 | Outpatient (CLI) | payer OTHER | END | disposition home or self-care (01) | LOC: RESCLI 02:54 | DX: D64.9 Anemia, unspecified (principal); E78.5 Hyperlipidemia, unspecified; Z79.899 Other long term (current) drug therapy; Z79.82 Long term (current) use of aspirin; Z95.0 Presence of cardiac pacemaker ==

== ENCOUNTER → 2018-05-23 | Day surgery (SDC) | payer OTHER ==
[~2018-05-23] VITALS: Ht 167.6 cm; Wt 70.3 kg
--- NOTE | ~2018-05-23 | PROC NOTE ---
[place], [place] PROCEDURE NOTE NAME: CORDELL CASILLAS [facility] #: [id number] UNIT #: [id number] ROOM: DOCTOR: CORONA JACOBO MD BIRTHDATE: [birth year] DOS: 05/23/2018 PREOPERATIVE DIAGNOSIS: Screening examination. POSTOPERATIVE DIAGNOSIS: Colon polyp at 15 cm from the anal verge. PROCEDURE: Colonoscopy with polypectomy. SURGEON: Corona Jacobo M.D. CLINICAL OPERATIONS CONSULTANT: DARIEN. ANESTHESIA: MAC. INDICATIONS: This is a 63-year-old gentleman who is here for a screening examination and for a workup of anemia. The procedure and its complications were explained to the patient in detail preoperatively. Complications that were discussed included but were not limited to bleeding, colon perforation, and missed lesions. He agreed to proceed. DESCRIPTION OF PROCEDURE: After identifying the patient, the patient was brought to the operating suite and laid in the left lateral position. After time-out procedure was called, IV sedation was administered by the anesthesia team. A digital rectal exam was performed, which was within normal limits. An adult colonoscope was now introduced into the anal canal and advanced sequentially into the rectum, sigmoid colon, descending colon, transverse colon and ascending colon up to the cecum. Upon reaching the cecum, the scope was withdrawn. Total withdrawal time was 7 minutes. Upon reaching approximately 15 cm from the anal verge in the sigmoid colon, there was a small polyp that was identified. This was removed in its entirety with the help of the polypectomy forceps and sent for histopathological diagnosis. After hemostasis was confirmed, the scope was withdrawn. No other lesions were identified. Based on these findings, the patient is recommended to have another colonoscopy in 3-5 years or sooner if new symptoms arise. These findings were discussed with the patient and his family in the recovery room. Corona Jacobo MD CM:PROCNOTE:PROCEDURE NOTE 1141 1615 CORONA JACOBO MD
[2018-05-23 11:07] VITALS: BP 140/77
[2018-05-23 11:37] VITALS: BP 103/64
[2018-05-23 12:07] VITALS: BP 113/60
== END | disposition home or self-care (01) ==
LOC: SDC 05-21 13:15
DX: Z12.11 Encounter for screening for malignant neoplasm of colon (principal); D12.7 Benign neoplasm of rectosigmoid junction; D64.9 Anemia, unspecified; I11.0 Hypertensive heart disease with heart failure; I50.20 Unspecified systolic (congestive) heart failure; I73.9 Peripheral vascular disease, unspecified; E78.5 Hyperlipidemia, unspecified; I25.2 Old myocardial infarction; Z95.0 Presence of cardiac pacemaker; Z95.1 Presence of aortocoronary bypass graft; Z98.890 Other specified postprocedural states; Z79.899 Other long term (current) drug therapy; Z86.73 Personal history of transient ischemic attack (TIA), and cerebral infarction without residual deficits; Z87.891 Personal history of nicotine dependence

== ENCOUNTER 2018-06-15 15:01 | Emergency (ER) | payer OTHER ==
[~2018-06-15] VITALS: Wt 68.0 kg
[2018-06-15 15:43] LABS: BASO % 0.4 % (0.0-1.0); EOS # 0.1 10*3/uL (0.0-0.4); EOS % 1.4 % (1.0-4.0); HEMATOCRIT 37.5 % (42.0-52.0); LYMPH # 1.5 10*3/uL (1.3-4.4); LYMPH % 21.7 % (27.0-41.0); MEAN CORPUSCULAR HGB 27.8 pg (27.0-31.0); MEAN PLATELET VOLUME 9.8 fl (9.6-12.3); MONO # 0.6 10*3/uL (0.1-1.0); MONO % 8.7 % (3.0-9.0); NEUT # 4.7 10*3/uL (2.3-7.9); NEUT % 67.5 % (47.0-73.0); PLATELET COUNT AUTOMATED 246 10*3/uL (130-400); RED BLOOD COUNT 4.31 10*6/uL (4.50-5.90); RED CELL DISTRI WIDTH 13.5 % (0-14.5); WHITE BLOOD COUNT 6.9 10*3/uL (4.8-10.8)
[2018-06-15 15:57] LABS: ALBUMIN 4.2 gm/dl (3.1-4.5); CREATININE 1.47 mg/dL (0.70-1.30); POTASSIUM 3.5 mmol/L (3.5-5.1); TOTAL PROTEIN 8.1 gm/dL (6.4-8.2)
== END 2018-06-15 17:22 | disposition home or self-care (01) ==
LOC: ED 15:01
PROVIDERS: Emergency Medicine
DX: K29.70 Gastritis, unspecified, without bleeding (principal); I25.10 Atherosclerotic heart disease of native coronary artery without angina pectoris; K21.9 Gastro-esophageal reflux disease without esophagitis; I13.0 Hypertensive heart and chronic kidney disease with heart failure and stage 1 through stage 4 chronic kidney disease, or unspecified chronic kidney disease; N18.9 Chronic kidney disease, unspecified; I50.22 Chronic systolic (congestive) heart failure; E78.00 Pure hypercholesterolemia, unspecified; I25.2 Old myocardial infarction; Z79.899 Other long term (current) drug therapy; Z79.82 Long term (current) use of aspirin; Z89.412 Acquired absence of left great toe; Z89.411 Acquired absence of right great toe; Z89.422 Acquired absence of other left toe(s); Z89.421 Acquired absence of other right toe(s); Z87.891 Personal history of nicotine dependence

== ENCOUNTER 2018-11-29 18:44 | Emergency (ER) | payer OTHER ==
[~2018-11-29] VITALS: Ht 167.6 cm; Wt 68.0 kg
[2018-11-29] MEDS ORDERED: AUGMENTIN 500500 M1 PO (19:16)
== END 2018-11-29 19:35 | disposition home or self-care (01) ==
LOC: ED 18:44
DX: K11.20 Sialoadenitis, unspecified (principal); Z79.899 Other long term (current) drug therapy; Z79.82 Long term (current) use of aspirin; Z87.891 Personal history of nicotine dependence

== ENCOUNTER 2018-12-19 18:09 | Emergency (ER) | payer OTHER ==
[~2018-12-19] VITALS: Ht 167.6 cm; Wt 68.0 kg
[~2018-12-19 18:09] MED LIST changes: +AUGMENTIN 500500 M1 PO
[2018-12-19] MEDS ORDERED: AUGMENTIN 875875 MG PO (18:38)
== END 2018-12-19 19:06 | disposition home or self-care (01) ==
LOC: ED 18:09
DX: K11.5 Sialolithiasis (principal); Z79.899 Other long term (current) drug therapy; Z79.82 Long term (current) use of aspirin; Z87.891 Personal history of nicotine dependence

== ENCOUNTER 2019-01-25 13:41 | Emergency (ER) | payer OTHER ==
[~2019-01-25] VITALS: Ht 167.6 cm; Wt 68.0 kg
[~2019-01-25 13:41] MED LIST changes: +AUGMENTIN 875875 MG PO
[2019-01-25] MEDS ORDERED: AUGMENTIN 875-875 MG PO (16:02)
== END 2019-01-25 16:07 | disposition home or self-care (01) ==
LOC: ED 13:41
DX: K11.5 Sialolithiasis (principal); I11.0 Hypertensive heart disease with heart failure; I50.9 Heart failure, unspecified; I73.9 Peripheral vascular disease, unspecified; I25.2 Old myocardial infarction; E78.00 Pure hypercholesterolemia, unspecified; Z86.73 Personal history of transient ischemic attack (TIA), and cerebral infarction without residual deficits; Z79.2 Long term (current) use of antibiotics; Z79.899 Other long term (current) drug therapy; Z79.82 Long term (current) use of aspirin; Z89.412 Acquired absence of left great toe; Z89.411 Acquired absence of right great toe; Z89.421 Acquired absence of other right toe(s); Z89.422 Acquired absence of other left toe(s); Z87.891 Personal history of nicotine dependence

== ENCOUNTER 2019-05-16 17:16 | Emergency (ER) | payer OTHER ==
[~2019-05-16] VITALS: Ht 167.6 cm; Wt 68.0 kg
[~2019-05-16 17:16] MED LIST changes: +AUGMENTIN 875-875 MG PO
[2019-05-16 18:17] LABS: BASO % 0.6 % (0.0-1.0); EOS # 0.2 10*3/uL (0.0-0.4); EOS % 2.5 % (1.0-4.0); HEMATOCRIT 33.6 % (42.0-52.0); HEMOGLOBIN 10.7 g/dl (14.0-18.0); LYMPH # 1.5 10*3/uL (1.3-4.4); MEAN CELL VOLUME 89.4 fl (80.0-94.0); MEAN CORPUSCULAR HGB 28.5 pg (27.0-31.0); MEAN CORPUSCULAR HGB CONC 31.8 g/dl (33.0-37.0); MEAN PLATELET VOLUME 8.9 fl (9.6-12.3); MONO # 0.6 10*3/uL (0.1-1.0); MONO % 9.3 % (3.0-9.0); NEUT # 4.6 10*3/uL (2.3-7.9); NEUT % 66.3 % (47.0-73.0); PLATELET COUNT AUTOMATED 200 10*3/uL (130-400); RED BLOOD COUNT 3.76 10*6/uL (4.50-5.90); WHITE BLOOD COUNT 6.9 10*3/uL (4.8-10.8)
[2019-05-16 18:32] LABS: ALBUMIN 3.6 gm/dl (3.1-4.5); CREATININE 2.13 mg/dL (0.70-1.30); POTASSIUM 4.1 mmol/L (3.5-5.1); TOTAL PROTEIN 6.7 gm/dL (6.4-8.2)
== END 2019-05-16 18:38 | disposition short-term general hospital (02) ==
LOC: ED 17:16
PROVIDERS: Nurse Practitioner
DX: S68.121A Partial traumatic metacarpophalangeal amputation of left index finger, initial encounter (principal); S68.127A Partial traumatic metacarpophalangeal amputation of left little finger, initial encounter; Z79.899 Other long term (current) drug therapy; Z79.82 Long term (current) use of aspirin; Z87.891 Personal history of nicotine dependence; W31.2XXA Contact with powered woodworking and forming machines, initial encounter; Y93.89 Activity, other specified; Y92.89 Other specified places as the place of occurrence of the external cause; Y99.8 Other external cause status

== ENCOUNTER → 2019-08-21 | Outpatient (CLI) | payer OTHER ==
[2019-08-21 12:34] LABS: BASO % 0.4 % (0.0-1.0); EOS # 0.2 10*3/uL (0.0-0.4); HEMATOCRIT 38.5 % (42.0-52.0); LYMPH # 1.2 10*3/uL (1.3-4.4); LYMPH % 15.9 % (27.0-41.0); MEAN CELL VOLUME 88.7 fl (80.0-94.0); MEAN CORPUSCULAR HGB 28.6 pg (27.0-31.0); MEAN CORPUSCULAR HGB CONC 32.2 g/dl (33.0-37.0); MEAN PLATELET VOLUME 9.6 fl (9.6-12.3); MONO # 0.7 10*3/uL (0.1-1.0); MONO % 9.2 % (3.0-9.0); NEUT # 5.4 10*3/uL (2.3-7.9); NEUT % 72.1 % (47.0-73.0); PLATELET COUNT AUTOMATED 250 10*3/uL (130-400); RED BLOOD COUNT 4.34 10*6/uL (4.50-5.90); RED CELL DISTRI WIDTH 13.4 % (0-14.5); WHITE BLOOD COUNT 7.5 10*3/uL (4.8-10.8)
[2019-08-21 12:55] LABS: ALBUMIN 4.1 gm/dl (3.1-4.5); BUN 21 mg/dl (7-24); CHLORIDE 106 mmol/L (98-107); CREATININE 1.39 mg/dL (0.70-1.30); IRON 96 ug/dL (65-175); POTASSIUM 4.2 mmol/L (3.5-5.1); SODIUM 138 mmol/L (136-145); TOTAL IRON BINDING CAPACITY 369 ug/dl (250-450)
[2019-08-21 12:59] LABS: BILIRUBIN NEGATIVE (NEGATIVE); BLOOD NEGATIVE (NEGATIVE); CLARITY CLEAR (CLEAR); COLOR STRAW (YELLOW); GLUCOSE NEGATIVE (NEGATIVE); KETONE NEGATIVE (NEGATIVE); LEUKO ESTERASE NEGATIVE (NEGATIVE); NITRITE NEGATIVE (NEGATIVE); SPECIFIC GRAVITY 1.015 (1.005-1.030); UROBILINOGEN 0.2 E.U./dl (0.2-1.0)
[2019-08-21 13:09] LABS: HYALINE CAST 16-20; MUCOUS TRACE; WBC 0-2 wbc/hpf (0-5)
[2019-08-21 13:35] LABS: FERRITIN 165.6 ng/mL (22.0-322.0); PTH INTACT 51.7 pg/mL (18.5-88.0); VITAMIN D, 25-HYDROXY 28.4 ng/mL (30-100)
== END | disposition home or self-care (01) ==
LOC: LAB 11:22
PROVIDERS: Internal Medicine Nephrology
DX: N17.9 Acute kidney failure, unspecified (principal); N18.3 Chronic kidney disease, stage 3 (moderate); I50.9 Heart failure, unspecified; D63.1 Anemia in chronic kidney disease; N25.81 Secondary hyperparathyroidism of renal origin

== ENCOUNTER → 2019-08-27 | Outpatient (CLI) | payer OTHER | END | disposition home or self-care (01) | LOC: CARD 08:45 | DX: N17.9 Acute kidney failure, unspecified (principal); I50.9 Heart failure, unspecified ==

== ENCOUNTER → 2021-07-18 | Outpatient (CLI) | payer OTHER, MEDICAID ==
[2021-07-18 09:49] LABS: CREATININE 1.33 mg/dL (0.70-1.30)
== END | disposition home or self-care (01) ==
LOC: CT 09:18
PROVIDERS: Radiology Diagnostic Radiology; ATTEND Internal Medicine Cardiovascular Disease
DX: I71.4 Abdominal aortic aneurysm, without rupture (principal); Z98.890 Other specified postprocedural states

== ENCOUNTER → 2021-08-09 | Outpatient (CLI) | payer OTHER, MEDICAID | END | disposition home or self-care (01) | LOC: CARD 06-27 10:30 | PROVIDERS: ATTEND Internal Medicine Cardiovascular Disease | DX: I08.1 Rheumatic disorders of both mitral and tricuspid valves (principal) ==

== ENCOUNTER 2021-09-06 11:05 | Emergency (ER) | payer OTHER, MEDICAID ==
[~2021-09-06] VITALS: Ht 167.6 cm; Wt 68.0 kg
== END 2021-09-06 15:47 | disposition home or self-care (01) ==
LOC: ED 11:05
DX: M25.461 Effusion, right knee (principal); Z79.899 Other long term (current) drug therapy; Z79.82 Long term (current) use of aspirin; Z98.890 Other specified postprocedural states; Z87.891 Personal history of nicotine dependence

== ENCOUNTER → 2021-10-21 | Outpatient (CLI) | payer OTHER, MEDICAID | END | disposition home or self-care (01) | LOC: CARD 00:22 | PROVIDERS: ATTEND Surgery Vascular Surgery | DX: I51.7 Cardiomegaly (principal); I71.4 Abdominal aortic aneurysm, without rupture; R06.02 Shortness of breath; R53.81 Other malaise ==

== ENCOUNTER → 2021-12-07 | Outpatient (CLI) | payer OTHER ==
[~2021-12-07] MED LIST changes: +ALLOPURINOL100 MG PO
== END | disposition home or self-care (01) ==
LOC: RAD 10:58
PROVIDERS: ATTEND Internal Medicine
DX: J43.8 Other emphysema (principal)

== ENCOUNTER 2021-12-20 14:19 | Inpatient (IN) | payer OTHER ==
[~2021-12-20] VITALS: Ht 167.6 cm; Wt 62.9 kg
[2021-12-20 14:24] VITALS: BP 143/94
[2021-12-20 14:42] LABS: BASO # 0.1 10*3/uL (0.0-0.1); BASO % 0.7 % (0.0-1.0); EOS % 0.2 % (1.0-4.0); HEMATOCRIT 41.1 % (42.0-52.0); LYMPH % 12.2 % (27.0-41.0); MEAN CELL VOLUME 89.7 fl (80.0-94.0); MEAN CORPUSCULAR HGB 28.4 pg (27.0-31.0); MEAN CORPUSCULAR HGB CONC 31.6 g/dl (33.0-37.0); MEAN PLATELET VOLUME 9.7 fl (9.6-12.3); MONO # 0.8 10*3/uL (0.1-1.0); MONO % 9.2 % (3.0-9.0); NEUT # 6.5 10*3/uL (2.3-7.9); NEUT % 77.5 % (47.0-73.0); PLATELET COUNT AUTOMATED 214 10*3/uL (130-400); RED BLOOD COUNT 4.58 10*6/uL (4.50-5.90); RED CELL DISTRI WIDTH 17.2 % (0-14.5); WHITE BLOOD COUNT 8.3 10*3/uL (4.8-10.8)
[2021-12-20 14:53] LABS: ACT PARTIAL THROMBO TIME 27.3 SECONDS (20.0-32.1); INTERNATIONAL NORM RATIO 1.4 (2.0-3.5)
[2021-12-20 15:06] LABS: BUN 27 mg/dl (7-24); CHLORIDE 107 mmol/L (98-107); CREATININE 1.39 mg/dL (0.70-1.30); SGOT/AST 18 IU/L (3-35); SGPT/ALT 19 U/L (12-78); SODIUM 139 mmol/L (136-145); TOTAL PROTEIN 7.9 gm/dL (6.4-8.2)
[2021-12-20 15:07] LABS: ALKALINE PHOSPHATASE 77 U/L (45-117)
[2021-12-20 15:14] VITALS: BP 143/94
[2021-12-20 16:46] VITALS: BP 138/104
[2021-12-20 18:43] VITALS: BP 144/95
[2021-12-20] MEDS ORDERED: FENOFIBRATE160 MG PO (18:51)
[2021-12-20] MEDS ORDERED: FUROSEMIDE40 MG PO (18:51)
[2021-12-20 19:59] VITALS: BP 140/91
[2021-12-20 20:50] VITALS: BP 140/92
[2021-12-21] VITALS: BP 113/71
[2021-12-21 04:00] VITALS: BP 116/73
[2021-12-21 07:13] LABS: BASO % 0.7 % (0.0-1.0); EOS % 0.2 % (1.0-4.0); HEMATOCRIT 35.5 % (42.0-52.0); LYMPH # 1.3 10*3/uL (1.3-4.4); LYMPH % 21.8 % (27.0-41.0); MEAN CELL VOLUME 90.3 fl (80.0-94.0); MEAN CORPUSCULAR HGB 28.2 pg (27.0-31.0); MEAN CORPUSCULAR HGB CONC 31.3 g/dl (33.0-37.0); MEAN PLATELET VOLUME 10.6 fl (9.6-12.3); MONO # 0.7 10*3/uL (0.1-1.0); MONO % 11.2 % (3.0-9.0); NEUT # 3.9 10*3/uL (2.3-7.9); NEUT % 65.6 % (47.0-73.0); PLATELET COUNT AUTOMATED 157 10*3/uL (130-400); RED BLOOD COUNT 3.93 10*6/uL (4.50-5.90); RED CELL DISTRI WIDTH 17.1 % (0-14.5)
[2021-12-21 07:23] LABS: ACT PARTIAL THROMBO TIME 29.3 SECONDS (20.0-32.1); INTERNATIONAL NORM RATIO 1.5 (2.0-3.5)
[2021-12-21 07:41] LABS: BUN 30 mg/dl (7-24); CHLORIDE 104 mmol/L (98-107); CHOLESTEROL 101 mg/dL (<200); CREATININE 1.37 mg/dL (0.70-1.30); POTASSIUM 3.5 mmol/L (3.5-5.1); SGOT/AST 25 IU/L (3-35); SGPT/ALT 21 U/L (12-78); SODIUM 139 mmol/L (136-145); TRIGLYCERIDES 66 mg/dl (<150)
[2021-12-21 07:48] LABS: ALKALINE PHOSPHATASE 58 U/L (45-117); FREE T4 1.39 ng/dl (0.76-1.46); LDL CHOLESTEROL 58 mg/dL (9-159); THYROID STIM HORMONE (HS) 0.796 uIU/ml (0.358-4.75)
[2021-12-21 08:00] VITALS: BP 98/52
[2021-12-21 08:38] LABS: VITAMIN D, 25-HYDROXY 32.5 ng/mL (30-100)
[2021-12-21 12:00] VITALS: BP 105/62
[2021-12-21 16:00] VITALS: BP 147/90
[2021-12-21 20:00] VITALS: BP 129/85
[2021-12-22 00:12] VITALS: BP 129/90
[2021-12-22 04:00] VITALS: BP 137/88
[2021-12-22 04:56] LABS: CREATININE 2.08 mg/dL (0.70-1.30)
[2021-12-22 05:06] LABS: POTASSIUM 4.6 mmol/L (3.5-5.1)
[2021-12-22 06:48] LABS: BASO % 0.2 % (0.0-1.0); HEMATOCRIT 43.9 % (42.0-52.0); LYMPH # 0.9 10*3/uL (1.3-4.4); LYMPH % 7.7 % (27.0-41.0); MEAN CELL VOLUME 92.2 fl (80.0-94.0); MEAN CORPUSCULAR HGB 28.8 pg (27.0-31.0); MEAN CORPUSCULAR HGB CONC 31.2 g/dl (33.0-37.0); MEAN PLATELET VOLUME 10.4 fl (9.6-12.3); MONO # 1.2 10*3/uL (0.1-1.0); NEUT # 9.7 10*3/uL (2.3-7.9); NEUT % 81.4 % (47.0-73.0); RED BLOOD COUNT 4.76 10*6/uL (4.50-5.90); RED CELL DISTRI WIDTH 17.4 % (0-14.5); WHITE BLOOD COUNT 11.9 10*3/uL (4.8-10.8)
[2021-12-22 06:51] LABS: PLATELET COUNT AUTOMATED 270 10*3/uL (130-400)
[2021-12-22 08:00] VITALS: BP 133/70
[2021-12-22 12:00] VITALS: BP 143/80
[2021-12-22 16:00] VITALS: BP 131/93
[2021-12-22 20:00] VITALS: BP 135/60
[2021-12-22] MEDS ORDERED: TOPROL XL25 MG PO (23:19)
[2021-12-22] MEDS ORDERED: LISINOPRIL2.5 MG PO (23:19)
[2021-12-23] VITALS: BP 104/37
== END 2021-12-23 01:00 | disposition short-term general hospital (02) | DRG 177 ==
LOC: ED 14:19 → 5E 17:54 → EDHOLD 17:54 → 5E 18:55
PROVIDERS: Student in an Organized Health Care Education/Training Program; ADMIT Internal Medicine; ATTEND Internal Medicine
DX: J15.6 Pneumonia due to other Gram-negative bacteria (principal); I50.23 Acute on chronic systolic (congestive) heart failure; N17.0 Acute kidney failure with tubular necrosis; I13.0 Hypertensive heart and chronic kidney disease with heart failure and stage 1 through stage 4 chronic kidney disease, or unspecified chronic kidney disease; E44.1 Mild protein-calorie malnutrition; N18.9 Chronic kidney disease, unspecified; I34.0 Nonrheumatic mitral (valve) insufficiency; I25.10 Atherosclerotic heart disease of native coronary artery without angina pectoris; K21.9 Gastro-esophageal reflux disease without esophagitis; I71.40 Abdominal aortic aneurysm, without rupture, unspecified; D64.9 Anemia, unspecified; R73.9 Hyperglycemia, unspecified; E80.6 Other disorders of bilirubin metabolism; Z86.79 Personal history of other diseases of the circulatory system; Z95.1 Presence of aortocoronary bypass graft; Z98.890 Other specified postprocedural states; Z87.891 Personal history of nicotine dependence; Z89.432 Acquired absence of left foot; Z89.431 Acquired absence of right foot; Z95.810 Presence of automatic (implantable) cardiac defibrillator; Z82.49 Family history of ischemic heart disease and other diseases of the circulatory system; I25.2 Old myocardial infarction; Z68.22 Body mass index [BMI] 22.0-22.9, adult

== ENCOUNTER 2022-04-22 09:04 | Emergency (ER) | payer OTHER ==
[~2022-04-22] VITALS: Ht 170.1 cm; Wt 68.0 kg
[~2022-04-22 09:04] MED LIST changes: +FUROSEMIDE40 MG PO; +TOPROL XL25 MG PO
[2022-04-22] MEDS ORDERED: CLINDAMYCIN HC300 MG PO (09:58)
== END 2022-04-22 10:18 | disposition home or self-care (01) ==
LOC: ED 09:04
DX: L02.213 Cutaneous abscess of chest wall (principal); Z87.891 Personal history of nicotine dependence; Z98.890 Other specified postprocedural states; Z79.899 Other long term (current) drug therapy; Z79.82 Long term (current) use of aspirin

== ENCOUNTER → 2023-05-03 | Outpatient (CLI) | payer OTHER | END | disposition home or self-care (01) | LOC: CT 10:48 | PROVIDERS: ATTEND Physician Assistant | DX: R91.1 Solitary pulmonary nodule (principal); J44.9 Chronic obstructive pulmonary disease, unspecified; I51.7 Cardiomegaly; I25.10 Atherosclerotic heart disease of native coronary artery without angina pectoris; F17.211 Nicotine dependence, cigarettes, in remission ==

== ENCOUNTER → 2023-08-02 | Outpatient (CLI) | payer OTHER ==
[2023-08-02 11:57] LABS: POTASSIUM 3.9 mmol/L (3.4-5.1)
== END | disposition home or self-care (01) ==
LOC: LAB 10:42
PROVIDERS: ATTEND Physician Assistant
DX: I10 Essential (primary) hypertension (principal); E78.5 Hyperlipidemia, unspecified

== ENCOUNTER → 2024-07-10 | Outpatient (CLI) | payer OTHER, MEDICAID ==
[~2024-07-10] MED LIST changes: +ALDACTONE25 MG PO; +ENTRESTO 97 MG1 EACH PO; +GABAPENTIN100 M2 PO; +JARDIANCE10 MG PO
[2024-07-10 11:58] LABS: BUN 21 mg/dl (9-23); CHLORIDE 104 mmol/L (98-107); CHOLESTEROL 158 mg/dL (<200); LDL CHOLESTEROL 81 mg/dL (9-159); POTASSIUM 3.9 mmol/L (3.4-5.1); SGPT/ALT 9 U/L (5-49); TRIGLYCERIDES 178 mg/dl (<150)
== END | disposition home or self-care (01) ==
LOC: LAB 11:17
PROVIDERS: ATTEND Physician Assistant
DX: I10 Essential (primary) hypertension (principal); E78.5 Hyperlipidemia, unspecified

== ENCOUNTER → 2024-10-14 | Outpatient (CLI) | payer MEDICARE, MEDICAID | END | disposition home or self-care (01) | LOC: CT 09-09 10:00 | PROVIDERS: ATTEND Physician Assistant | DX: Z12.2 Encounter for screening for malignant neoplasm of respiratory organs (principal); I25.10 Atherosclerotic heart disease of native coronary artery without angina pectoris; J43.9 Emphysema, unspecified; J84.10 Pulmonary fibrosis, unspecified; F17.210 Nicotine dependence, cigarettes, uncomplicated ==